=== PATIENT | female | born 1995 | race Caucasian/White ===

== ENCOUNTER 2020-01-11 19:41 | Emergency (ER) | payer OTHER, SELFPAY ==
--- NOTE | ~2020-01-11 | XR_ITS ---
XR chest 2V DATE: 01/11/2020 20:21 INDICATION: Shortness of breath. Possible exposure to COVID-19 TECHNIQUE: PA and lateral views COMPARISON: None FINDINGS: Normal heart size. No hilar or mediastinal enlargement. No pulmonary infiltrate or consolid ation, pleural effusion or pulmonary vascular congestion or pneumothorax. IMPRESSION: Negative Reviewed, dictated and finalized at location A. IMPRESSION: Negative
[2020-01-11 19:50] VITALS: BP 107/53; PULSE 75; RESP 18; TEMP 37.1; O2SAT 96
--- NOTE | 2020-01-11 19:58 | ED.GENADULT ---
HPI - General Adult General Chief complaint: Upper Respiratory Infection Stated complaint: cough/shortness/fever Time Seen by Provider: 01/11/20 20:00 Source: patient and RN notes reviewed Mode of arrival: ambulatory Limitations: no limitations History of Present Illness HPI narrative: This is a 24 years old female presented to the office for evaluation of cough and shortness of breath for several day. She travels to [place] on 01/03 for work, developed symptoms on 01/05 while she was in [place]. States, she did not go anywhere except at her work place. Symptoms worsen about 4 days ago with cough and shortness of breathe. She also reports fever up to 100.1F last night. Denies sick contact while she was in [place]. She took tylenol for her symptoms. She is breast feeding. She does not smoke. She supposed to have a gathering with her family members tomorrow; include her grandparents. She also request albuterol inhaler. Related Data Home Medications Medication Instructions Recorded Confirmed albuterol sulfate 2 puff INHALATION QID 01/11/20 01/11/20 Allergies Allergy/AdvReac Type Severity Reaction Status Date / Time latex Allergy Mild Rash Verified 01/11/20 19:59 prednisone Allergy Mild Other Verified 01/11/20 19:59 shellfish derived Allergy Unknown Unknown Verified 01/11/20 19:59 Review of Systems Review of Systems: Narrative: CONSTITUTIONAL:Reports fever 100.1F ENT: Denies ears pain. Reports scratchy throat. CARDIOVASCULAR: Denies chest pain RESPIRATORY: Reports dyspnea, cough with pain her chest when she cough GASTROINTESTINAL: Denies abdominal pain, nausea, vomiting, diarrhea. GENITOURINARY: Denies urinary symptoms SKIN: Denies rash MUSCULOSKELETAL: Denies acute back pain NEUROLOGIC: Denies lightheaded PMFSH Past Medical History Medical History (Updated 01/12/20 @ 00:00 by Abdoulaye Antoine) Asthma Social History Social History (Updated 01/11/20 @ 20:09 by PATO Loco) Smoking status: Never smoker Comments At time of signature, I agree with nursing past medical, surgical, social and family history. There is no relevant family history pertinent to the presenting complaint. Exam Narrative: Exam Narrative: GENERAL: This is a well-nourished, well-developed patient, in no apparent distress. EYES:Sclera clear/white. Vision is grossly intact. EARS: External ears normal, auditory canals clear and without drainage, TMs normal without perforation. Hearing grossly intact. NOSE: External nose normal with no obvious nasal discharge, nares without redness, no rhinorrhea. THROAT: Mucous membranes moist, posterior pharynx clear. NECK: Neck supple, non-tender without lymphadenopathy, masses or thyromegaly. CARDIOVASCULAR: Regular rate and rhythm without murmurs, gallops, or rubs. RESPIRATORY: Diminished throughout; no use of accessory muscle. Breath sounds equal bilaterally. No wheezes, rales, or rhonchi. GASTROINTESTINAL: Abdomen soft, non-tender, nondistended. Bowel sounds are active. No hepato-splenomegaly, or palpable masses. No guarding. SKIN: warm, intact with no suspicious lesions or rash, good texture and turgor. NEURO: awake, alert, and oriented to person, place and time. There were no obvious focal neurologic abnormalities. Steady gait [place] Coma Scale Eye Opening: Spontaneous 4 [place] Coma Scale Motor: Obeys Commands 6 [place] Coma Scale Verbal: Oriented 5 Course Vital Signs Vital signs: Vital Signs Temperature 98.7 F 01/11/20 19:50 Pulse Rate 75 01/11/20 19:50 Respiratory Rate 18 01/11/20 19:50 Blood Pressure 107/53 L 01/11/20 19:50 Pulse Oximetry 96 01/11/20 19:50 Temperature 98.7 F 01/11/20 19:50 Pulse Rate 75 01/11/20 19:50 Respiratory Rate 18 01/11/20 19:50 Blood Pressure 107/53 L 01/11/20 19:50 Pulse Oximetry 96 01/11/20 19:50 Medical Decision Making [facility] Narrative Medical decision making narrative: I contacted the infectious disease nurs
== END 2020-01-11 20:49 | disposition home or self-care (01) ==
PROVIDERS: Emergency Provider Nurse Practitioner
DX: J06.9 Acute upper respiratory infection, unspecified (principal); J45.909 Unspecified asthma, uncomplicated
CPT/HCPCS: 71046; 87804; 99213; G0463

== ENCOUNTER 2023-07-09 17:09 | Emergency (ER) | payer BC, OTHER, MEDICAID, SELFPAY ==
--- NOTE | ~2023-07-09 | XR_ITS ---
EXAM: XR finger 3rd RT min 2V DATE: 07/09/2023 18:31 HISTORY: HIKING 07/09/23. FELL FORWARD,HYPEREXTENDED 3RD FINGER. . COMPARISON: None available. FINDINGS: Normal mineralization. Oblique fracture of the midshaft of the right third middle phalange , with minimal medial displacement and possible extension to the articular surface. No lytic or blast ic lesion. Joint spaces are maintained. No erosion or periosteal change. Soft tissues within normal l imits. IMPRESSION: Oblique, minimally displaced, possibly intra-articular fracture of the right third middle phalange. Reviewed, dictated and finalized at location K.
[2023-07-09 17:24] VITALS: BP 102/64; PULSE 60; RESP 18; TEMP 36.8; O2SAT 98
--- NOTE | 2023-07-09 19:31 | ED.GENADULT ---
HPI - General Adult General Chief complaint: Extremity Injury, Upper Stated complaint: right hand finger injury Source: patient Mode of arrival: ambulatory Limitations: no limitations History of Present Illness HPI narrative: Patient presents for evaluation of pain in the 3rd digit of the right hand since yesterday. She and her were hiking when she tripped. The third digit of her right hand got caught on his belt loop. She now has 7/10 pain at rest which increases to 10/10 in severity with movement. Pain is primarily in the middle phalanx. No descriptive quality of the pain. No paresthesias. She reports decreased range of motion in that digit. She is right-hand dominant. She tried taking ibuprofen for her symptoms. Related Data Home Medications Medication Instructions Recorded Confirmed alprazolam 0.25 mg tablet 0.25 mg PO DIRECTED 07/09/23 07/09/23 bupropion HCl 300 mg 24 hr tablet, 300 mg PO DIRECTED 07/09/23 07/09/23 extended release dextroamphetamine-amphetamine 10 10 mg PO DIRECTED 07/09/23 07/09/23 mg tablet Allergies Allergy/AdvReac Type Severity Reaction Status Date / Time latex Allergy Mild Rash Verified 07/09/23 17:38 prednisone Allergy Mild Other Verified 07/09/23 17:38 shellfish derived Allergy Unknown Unknown Verified 07/09/23 17:38 Review of Systems Review of Systems: CONSTITUTIONAL: Denies fever, chills, or sweats. EYES: Denies visual changes, redness, or discharge. ENT: Denies rhinorrhea, congestion, sore throat, or otalgia. CARDIOVASCULAR: Denies chest pain, palpitations, or edema. RESPIRATORY: Denies cough or dyspnea. GASTROINTESTINAL: Denies abdominal pain, nausea, vomiting, or diarrhea. GENITOURINARY: Denies dysuria or hematuria. SKIN: Reports bruising to the 3rd digit of the right hand. MUSCULOSKELETAL: Reports pain and swelling in the 3rd digit of the right hand. NEUROLOGIC: Denies headache, numbness, dizziness, or weakness. PSYCHIATRIC: Denies anxiety or depression. [facility] Past Medical History Medical History (Updated 07/09/23 @ 19:34 by Eduardo Patterson, PATO, KALI) Asthma Closed fracture of phalanx of right middle finger Surgical History Surgical History No pertinent past surgical history Family History Family History Mother Family history non-contributory Social History Social History Smoking status: Never smoker Exam Narrative: GENERAL: Well-appearing, well-nourished, and in no acute distress. HEAD: Normocephalic, atraumatic. EYES: PERRLA and EOMI. ENT: Nares clear, no rhinorrhea or epistaxis. Mucous membranes moist. Oropharynx without tonsillar hypertrophy exudate or other lesions. Bilateral TMs pearly tian nonbulging NECK: Supple. No adenopathy or masses. No carotid bruits or JVD CHEST: Clear to auscultation. No respiratory distress. No wheezes rales or rhonchi HEART: Regular rate and rhythm. No murmur heard. Normal peripheral pulses. ABDOMEN: Soft, nontender, nondistended, normal active bowel sounds. EXTREMITIES: There is swelling present to the 3rd digit of the right hand. Decreased range of motion of the PIP and DIP joints of the 3rd digit of the right hand. There is tenderness noted to the middle phalanx of the 3rd digit of the right hand. SKIN: Ecchymosis noted to the 3rd digit of the right hand. NEURO: No focal deficits. Alert and oriented x3. PSYCH: Normal mood and affect. Course Course Emergency Course: This is a 28-year-old female who presented for an injury to the 3rd digit of the right hand. X-ray shows comminuted fracture to the middle phalanx. She was placed in a aluminum finger splint. She should follow up with hand surgery tomorrow. Previously did not respond well to hydrocodone so will discharge with Percocet. Advised RICE the
== END 2023-07-09 19:33 | disposition home or self-care (01) ==
PROVIDERS: Emergency Provider Nurse Practitioner; PCP Family Medicine
DX: S62.622A Displaced fracture of middle phalanx of right middle finger, initial encounter for closed fracture (principal); W19.XXXA Unspecified fall, initial encounter
CPT/HCPCS: 29130; 73140; 99204; G0463